=== PATIENT | male | born 1985 | race Caucasian/White ===

== ENCOUNTER 2019-08-10 16:24 | Emergency (ER) | payer SELFPAY ==
[2019-08-10 16:33] VITALS: BMI 23.7
[2019-08-10 16:36] VITALS: BP 135/82; PULSE 62; RESP 16; TEMP 37; O2SAT 99
== END 2019-08-10 20:10 | disposition left against medical advice (07) ==
LOC: ER 16:45
PROVIDERS: Emergency Provider Family Medicine
DX: Z53.21 Procedure and treatment not carried out due to patient leaving prior to being seen by health care provider (principal)
CPT/HCPCS: 99281